=== PATIENT | female | born 2000 | race Two or more races ===

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

== ENCOUNTER 2022-08-18 09:21 | Outpatient (REF) | payer BC, MEDICAID, SELFPAY ==
--- NOTE | ~2022-08-18 | XR_ITS ---
EXAMINATION: XR DORSAL SPINE CLINICAL INFORMATION: Reason for Exam M54.6 - Pain in thoracic spine COMPARISON: None available at the time of this dictation. TECHNIQUE: Frontal lateral and swimmer's view. FINDINGS: There is no evidence of fracture or dislocation. The vertebral bodies maintain normal height and alignment. Intervertebral disc spaces are preserved. The paravertebral soft tissues are unremarkable. XR/XR thoracic spine 2V IMPRESSION: No significant osseous changes to explain patient's pain symptoms.
[2022-08-18 09:38] LABS: MANUAL DIFF FLAG NO
[2022-08-18 10:22] LABS: Basophils Absolute Auto 0.1 X10*3/uL (0.0-0.2); Eosinophils Absolute Auto 0.1 X10*3/uL (0.0-0.4); Eosinophils Percent Auto 1.4 % (0-4); Hematocrit 45.6 % (37.0-47.0); Hemoglobin 15.5 g/dl (12.0-16.0); Imm Gran Abs Auto 0.04 X10*3/uL (0.00-0.03); Imm Gran Pct Auto 0.8 % (0.0-0.4); Lymphocytes Absolute Auto 1.3 X10*3/uL (1.2-4.9); Lymphocytes Percent Auto 24.8 % (20-40); Mean Corpuscular Hemoglobin 30.2 pg (27.0-33.0); Mean Corpuscular Volume 88.9 fL (80.0-98.0); Mean Platelet Volume 9.9 fL (9.4-12.3); Monocytes Absolute Auto 0.5 X10*3/uL (0.1-1.2); Neutrophils Absolute Auto 3.2 x10*3/uL (2.0-8.3); Platelet Count 341 X10*3/uL (160-400); Red Blood Count 5.13 X10*6/uL (4.20-5.50); Red Cell Distribution Width 14.3 % (11.0-16.0); White Blood Count 5.1 X10*3/uL (4.8-10.8)
[2022-08-18 11:25] LABS: Alanine Aminotransferase 31 U/L (0-31); Alkaline Phosphatase 108 U/L (39-117); Anion Gap 16 (12-20); Aspartate Amino Transferase 17 U/L (5-31); Bilirubin Total 0.7 mg/dL (0.0-1.0); Blood Urea Nitrogen 15 mg/dL (9-16); Calcium 9.5 mg/dL (8.4-10.2); Carbon Dioxide 22 mmol/L (22-29); Chloride 104 mmol/L (96-108); Cholesterol 166 mg/dL; Estimated Glomerular Filt Rate > 60; Glucose Fasting 107 mg/dL (60-99); HDL Cholesterol 35 mg/dL; LDL Cholesterol Calculated 119 mg/dl; Potassium 4.5 mmol/L (3.3-5.1); Sodium 137 mmol/L (135-145); Total Protein 7.6 g/dL (6.5-8.0); Triglycerides 64 mg/dL
[2022-08-18 11:46] LABS: Free T4 (Free Thyroxine) 0.97 ng/dL (0.71-1.85); Thyroid Stimulating Hormone 2.38 uIU/mL (0.32-4.0)
== END 2022-08-18 09:22 | disposition home or self-care (01) ==
LOC: HO.LAB 09:21
PROVIDERS: PCP Internal Medicine; Visit Provider Internal Medicine
DX: E66.01 Morbid (severe) obesity due to excess calories (principal); Z68.41 Body mass index [BMI] 40.0-44.9, adult; M54.6 Pain in thoracic spine
CPT/HCPCS: 36415; 72070; 80053; 80061; 84439; 84443; 85025

== ENCOUNTER 2022-09-15 11:49 | Outpatient (REF) | payer BC, MEDICAID, SELFPAY ==
--- NOTE | 2022-09-15 08:45 | EMG_ITS ---
Bilateral median and ulnar motor and sensory studies were performed and bilateral radial sensory studies were performed. Needle examination was not performed as patient did not tolerate this test well. IMPRESSION: No evidence of median or ulnar neuropathy or generalized peripheral neuropathy. MD DIMPLE Tolentino/ERENDIRA / [phone]
== END 2022-09-15 11:50 | disposition home or self-care (01) ==
LOC: HO.NEURO 11:49
PROVIDERS: Visit Provider Internal Medicine
DX: R20.0 Anesthesia of skin (principal)
CPT/HCPCS: 95911

== ENCOUNTER 2022-12-19 15:00 | Outpatient (RCR) | payer BC, MEDICAID, SELFPAY ==
--- NOTE | 2022-12-09 16:23 | MHC.OT.EP ---
[address] [phone] Occupational Therapy Plan of Care Patient Name: Ofe Pop Date of Evaluation: 12/09/22 Diagnosis: Bilateral hand pain Pain Location: Parents report bilateral hands and wrists based on pt behaviors. Non specific. Occasional in the am and with cell phone games. Pt unable to answer questions consistently. Able to follow one step commands Pain Score: Pain Scale Used: Aggravating Factors: ?Sleep and gripping based on parent report Alleviating Factors: Assessment: Pt is a petite ,pleasant 21 yo female with a dx of Downs Syndrome , obesity and bilateral hand pain Pt parents reports she goes to a day program M- and at home she is mostly on her phone playing games. She requires assist to complete all ADL . 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 Evaluation is difficult due to pt low communication skills Pt will benefit from OT to address hand pain and left hand weakness Frequency and Duration: The patient will be seen 2 x wk x 4 wks Short Term Goals: Pt demonstrate improved hand sx in the AM with use of night wrist orthosis Left archery equipment hay sorter > 25 lb Tolerate moderate bilateral hand activities without complaint. Group Home Goals: Same as above Treatment Plan: Therapeutic Exercise Therapeutic Activity Home Exercise Program Splinting Patient Education Soft Tissue Mobilization Electronically Signed By: Ruth Wills OT CHT CLT Please Sign and return to therapist. Thank you once again for your referral.
--- NOTE | 2022-12-19 15:43 | MHC.OT.DC ---
[address] [phone] F: [phone] Occupational Therapy Discharge Note Patient Name: Ofe Pop Provider: Kimmie Perla Diagnosis: Bilateral hand pain Date of Surgery: Date of Evaluation: 12/09/22 Date of Discharge: 12/19/22 Treatments to Date: 2 Cancellations to Date: 0 No Shows to Date: 1 Discharge Status: Achieved Goals Improved Function Discharge Summary: Goals met for hand pain, strength and function . Pt is independent with hand strengthening with green therapy putty. Electronically Signed By: Ruth Wills OT CHT CLT Reviewed/agree with student documentation: Therapist: Please Sign and return to therapist, thank you for your referral.
== END 2022-12-19 15:43 | disposition home or self-care (01) ==
LOC: HO.OT 15:00
PROVIDERS: PCP Internal Medicine; Visit Provider Internal Medicine
DX: M79.641 Pain in right hand (principal); M79.642 Pain in left hand
CPT/HCPCS: 97110; 97167; 97530; 97760

== ENCOUNTER 2023-08-10 10:02 | Outpatient (AMB) | payer MEDICAID, SELFPAY ==
[2023-08-10 10:13] VITALS: BP 110/72; PULSE 83; TEMP 36.3; O2SAT 98
--- NOTE | 2023-08-10 10:13 | MHC.OFFWIV ---
Intake Vital Signs 08/10/23 10:13 Height 4 ft 8 in BP 110/72 Blood Pressure Location Rt brachial Position Sitting Pulse 83 Temp 97.4 F Temp Source Oral Pulse Oximetry (%) 98 Intake Visit Reasons: EP Cough, Fatigued, Sore throat (Masked) Intake Note: pt is here for c.o cough, fatigue, and sore throat Patient Tobacco Use Status: Never used Tobacco Allergies azithromycin Allergy (Severe, Verified 08/10/23 10:14) hives ranitidine [From ZANTAC] Allergy (Intermediate, Verified 08/10/23 10:14) HIVES SEASONAL ALLERGIES Allergy (Intermediate, Uncoded 11/21/22 08:55) HIVES Medication List - Last Reconciled 08/10/23 by Izzy Carrion NP acetaminophen 500 mg PO Q6H PRN benzonatate 100 mg PO TID cetirizine 10 mg PO DAILY 90 days ibuprofen 600 mg PO Q8H PRN 30 days Do you need a note to return to daycare/school/sports/work: Yes HPI HPI Comments History of Present Illness Details 22 y/o female presents to walk in clinic with c/o headache, cough, fatigue and sorethroat. Symptoms started 1 week ago. Reports that her entire family is sick at home. No recent contact with known +ve COVI or FLU. She has been taking OTC cough medicine with some relief. [facility] Medical History Down syndrome Surgical History History of open heart surgery Family History Mother Asthma Family/Other Substance use disorder Father Hypercholesteremia Diabetes CHF (congestive heart failure) Paternal Aunt CHF (congestive heart failure) Diabetes Fibromyalgia Social History Housing: Apartment Alcohol intake: never Patient Tobacco Use Status: Never used Tobacco e-Cigarette/Vaping Use: Never Used Second Hand Smoke Exposure: No service: No Current occupational status: unemployed and disabled Cognitive needs: No Hearing needs: No Vision needs: Yes Review of Systems Const All systems reviewed & are unremarkable except as noted in HPI and below Physical Exam Vital Signs: Last Vital Signs Temp 97.4 F 08/10/23 10:13 Pulse 83 08/10/23 10:13 BP 110/72 08/10/23 10:13 Pulse Ox 98 08/10/23 10:13 Const General: no acute distress HEENT Head: Yes normocephalic Ears: TM's normal bilaterally General nose exam: Normal nares present and No nasal discharge present Face and sinus: Yes sinuses nontender Mouth: moist mucous membranes Throat: Yes posterior oropharynx normal Resp Auscultation: clear to auscultation bilaterally Cardio Rate: regular rate Rhythm: regular rhythm Results AMB Rapid Strep AMB Rapid Strep Negative Last Edit by Stew Edgar CMA on 08/10/23 10:26 Results Reviewed Results Reviewed: Laboratory Last Values Strep Scn Rapid Clinic Negative 08/10/23 10:25 Assessment & Plan Assessment & Plan (1) URI, acute: Code(s): J06.9 - Acute upper respiratory infection, unspecified Plan: Rest Acetaminophen for pain/fatigue Hydrate with plenty of fluids OTC cough medicine (2) Cough in adult: Code(s): R05.9 - Cough, unspecified Plan: Rest Acetaminophen for pain/fatigue Hydrate with plenty of fluids OTC cough medicine (3) Acute pharyngitis: Code(s): J02.9 - Acute pharyngitis, unspecified Qualifiers: Pharyngitis/tonsillitis etiology: unspecified etiology Qualified Code(s): J02.9 - Acute pharyngitis, unspecified Plan: Rest Acetaminophen for pain/fatigue Hydrate with plenty of fluids OTC cough medicine Orders: Orders AMB Rapid Strep Screen Today Z13.9 - Encounter for screening, unspecified Medications: New acetaminophen 500 mg PO Q6H PRN 20 caps 0RF fever benzonatate 100 mg PO TID 30 caps 0RF Coding Level of Care Code Est Pt Level 2 (30697) Diagnoses URI, acute J06.9 Cough in adult R05.9 Acute pharyngitis, unspecified etiology J02.9 Pharyngitis/tonsillitis etiology: unspecified etiology Time Spent (min) 10
== END 2023-08-10 10:55 | disposition home or self-care (01) ==
PROVIDERS: PCP Internal Medicine; Visit Provider Nurse Practitioner Family
DX: J06.9 Acute upper respiratory infection, unspecified (principal); R05.9 Cough, unspecified; J02.9 Acute pharyngitis, unspecified
CPT/HCPCS: 87880; 99213

== ENCOUNTER 2023-11-23 08:05 | Outpatient (AMB) | payer OTHER, SELFPAY ==
--- NOTE | 2023-11-23 08:20 | MHC.PC.OV ---
Vital Signs 11/23/23 08:21 Height 4 ft 8 in Weight 189 lb BMI 42.4 BP 110/70 Blood Pressure Location Lt brachial Position Sitting Intake Visit Reasons: pe Intake Note: Patient here for a physical exam Marketing Content Manager Required: No Accompanied by: Mother Allergies azithromycin Allergy (Severe, Verified 11/23/23 08:35) hives ranitidine [From ZANTAC] Allergy (Intermediate, Verified 11/23/23 08:35) HIVES SEASONAL ALLERGIES Allergy (Intermediate, Uncoded 11/23/23 08:35) HIVES Medication List - Last Reconciled 11/23/23 by Kimmie Perla MD acetaminophen 500 mg PO Q6H PRN cetirizine 10 mg PO DAILY 90 days ibuprofen 600 mg PO Q8H PRN 30 days Tobacco use date assessed: 11/23/23 Dental Screening Dental Screen Date: 11/23/23 Did you have a dental visit in the last 12 months?: Yes Did you have a dental problem in the last 6 months where you did not have access to dental care?: No Was dental information given to patient?: Patient has dentist HPI HPI Comments History of Present Illness Details This is a 22-year-old female with Down syndrome and morbid obesity that comes accompanied by mother which is the clerical associate for her physical exam. Mother which is the historian complains of urinary incontinence for no reason. I will refer her to Urology. She is morbidly obese with a BMI of 42.4 and will benefit from Wegovy. Denies any chest pain or shortness of breath. Has Nexplanon and still has menses. Will be referred to OBGYN for another contraception management. 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 [facility] Medical History (Updated 11/23/23 @ 08:47 by Kimmie Perla MD) Down syndrome Surgical History (Updated 11/23/23 @ 08:47 by Kimmie Perla MD) History of open heart surgery Family History Mother Asthma Family/Other Substance use disorder Father Hypercholesteremia Diabetes CHF (congestive heart failure) Paternal Aunt CHF (congestive heart failure) Diabetes Fibromyalgia Social History Housing: Apartment Alcohol intake: never Patient Tobacco Use Status: Never used Tobacco e-Cigarette/Vaping Use: Never Used Second Hand Smoke Exposure: No service: No Current occupational status: student and disabled Cognitive needs: No Hearing needs: No Vision needs: Yes Questionnaire PHQ-9 Over the last 2 weeks, how often have you been bothered by any of the following problems? 1. Little interest or pleasure in doing things: not at all 2. Feeling down, depressed, or hopeless: not at all 3. Trouble falling or staying asleep, or sleeping too much: nearly every day 4. Feeling tired or having little energy: several days 5. Poor appetite or overeating: not at all 6. Feeling bad about yourself - or that you are a failure or have let yourself or your family down: not at all 7. Trouble concentrating on things, such as reading the newspaper or watching television: not at all 8. Moving or speaking so slowly that other people could have noticed. Or the opposite - being so fidgety or restless that you have been moving around a lot more than usual: not at all 9. Thoughts that you would be better off or of hurting yourself in some way: not at all Total score: 4 Depression Screening Interpretation: Negative Depression Screening Done: Yes 29257 - PHQ-9 Billing: Yes Source: Developed by Drs. Dave Guillaume, Daily Pena, Conrad Damon and colleagues, with an educational lashawn from [employer]. Thrive Questionnaire Date Thrive assessed: 11/23/23 I am a: Patient What is your living situation today?: I have a steady place to live Within the past 12 months, did the food you bought not last and you didn't have the money to get more?: Never true Within the past 12 months, did you worry whether your food would run out before you got money to buy more?: Never true Do you have trouble paying for medicines?: No Do you have trouble getting transportation to medical appointments?: No Do you have trouble paying your heating and electricity bill?: No Do you have trouble taking care of your child, family member or friend?: No Do you have trouble with day-to-day activities such as bathing, preparing meals, shopping, managing finances, etc.?: No Are you currently unemployed and looking for a job?: No Are you interested in more education?: No Please select the resources that you would like help with: None Currently or been in a relationship where the following occur: no concerns reported THRIVE Score: 0 AUDIT C Alcohol Use Questionnaire (AUDIT-C) 1. How often do you have a drink containing alcohol?: Never Total Score: 0 Score Reviewed/Action Taken: No FCO-7 AMB Questionnaire FCO-7 Date FCO - 7 assessed: 11/23/23 Feeling nervous, anxious, or on edge: 0 = Not at all Not being able to stop or control worryin = Not at all Worrying too much about different things: 0 = Not at all Trouble relaxin = Not at all Being so restless that it is hard to sit still: 0 = Not at all Becoming easily annoyed or irritable: 0 = Not at all Feeling afraid as if something awful might happen: 0 = Not at all Total FCO-7 score (0-4 normal; 5-9 mild; 10-14 moderate; 15-21 severe): 0 Source: Developed by Drs. Dave Guillaume, Daily Pena, Conrad Damon and colleagues, with an educational lashawn from [employer]. FCO-7 Assessment Billing FCO-7 Assessment Tool: FCO-7 Assessment 16260 Review of Systems Const All systems reviewed & are unremarkable except as noted in HPI and below Eyes Reports no additional complaints, Denies change in vision and Denies other visual disturbances ENT Denies change in voice, Denies lip swelling, Denies nasal discharge and Denies sinus pain Card Denies chest pain at rest, Denies chest pain with activity, Denies edema, Denies irregular heart rhythm, Denies claudication, Denies dyspnea, Denies dyspnea on exertion, Denies orthopnea, Denies paroxysmal nocturnal dyspnea and Denies slow heart rate Resp Denies cough, Denies dyspnea and Denies dyspnea on exertion GI Denies abdominal pain, Denies change in bowel habits, Denies excessive flatus, Denies nausea and Denies vomiting Reports urinary incontinence, Denies urinary hesitancy and Denies urinary urgency Musc Denies abnormal gait, Denies atrophy, Denies deformity and Denies limited range of motion Skin/Breast Denies bleeding lesions, Denies changing lesions and Denies rash Neuro Denies abnormal gait, Denies behavioral changes, Denies confusion and Denies lack of coordination Psych Denies behavioral changes and Denies confusion Endo Denies cold intolerance Karlo/Lymph Denies easy bleeding and Denies easy bruising Aller/Immun Denies urticaria and Denies lip swelling Physical exam (Primary Care) Vital Signs: Last Vital Signs BP 110/70 11/23/23 08:21 BMI result Body Mass Index 42.4 Tobacco/Smoking Status: Tobacco use Status Tobacco use date assessed 11/23/23 11/23/23 08:26 Patient Tobacco Use Status Never used Tobacco 11/23/23 08:21 e-Cigarette/Vaping Use Never Used 11/23/23 08:21 PHQ-9: PHQ-9 Score PHQ-9: Total score 4 11/23/23 08:26 Depression Screening Interpretation: Negative Thrive Assessment: Date of Thrive Assessment Date Thrive assessed 11/23/23 11/23/23 08:26 Currently or been in a relationship where the following occur: no concerns reported Const General: No confusion Orientation/consciousness: No confusion HENMT Head: Yes normal to inspection, Yes normocephalic and Yes atraumatic Ears: external ears normal General nose exam: Normal external nose present and No nasal discharge present Face and sinus: Yes sinuses nontender Mouth: lip normal Eyes General: appearance normal, both eyes and all related structures Eyelids: Yes eyelids normal Conjunctivae: conjunctivae normal Neck Neck: Yes normal visual inspection and Yes supple Resp Effort & Inspection: normal respiratory effort Auscultation: clear to auscultation bilaterally Cardio Jugular venous distension: no JVD Rate: regular rate Rhythm: regular rhythm Heart sounds: S1 normal heart sound present and S2 normal heart sound present GI Inspection: Yes normal to inspection Palpation (GI): Soft to palpation and nontender Auscultation: normal bowel sounds Skin General skin exam: no rashes or lesions noted Neuro General: no focal motor deficits and No confusion Extrem General: Yes full ROM Psych Appearance: grossly normal Assessment and Plan Assessment & Plan (1) Physical exam: Code(s): Z00.00 - Encounter for general adult medical examination without abnormal findings Plan: Repeat in a year. (2) Morbid obesity with BMI of 40.0-44.9, adult: Code(s): E66.01 - Morbid (severe) obesity due to excess calories; Z68.41 - Body mass index [BMI] 40.0-44.9, adult Plan: Start Wegovy. Orders: Referrals PIPE LINE MAINTENANCE SUPERVISOR Referral Z30.9 - Encounter for contraceptive management, unspecified Urology Referral R32 - Unspecified urinary incontinence Medications: New semaglutide (weight loss) (Wegovy) administer weeks 1 through 4 of therapy 0.25 mg (0.5 mL) subcut QWEEK 30 days 2.5 mL 0RF E66.01 - Morbid (severe) obesity due to excess calories, Z68.41 - Body mass index [BMI] 40.0-44.9, adult, Z98.890 - Other specified postprocedural states trazodone 50 mg PO BEDTIME 30 days PRN 30 tabs 0RF sleep Coding Level of Care Code Est Pt Prev Care 18-39y([id number]) Diagnoses Physical exam Z00.00 Morbid obesity with BMI of 40.0-44.9, adult E66.01; Z68.41 Additional Codes FCO-7 Assessment Billing - FCO-7 Assessment Tool: FCO-7 Assessment 79793 ([id number]) Time Spent (min) 31
[2023-11-23 08:21] VITALS: BP 110/70; BMI 42.4
== END 2023-11-23 08:46 | disposition home or self-care (01) ==
PROVIDERS: Visit Provider Internal Medicine
DX: Z00.00 Encounter for general adult medical examination without abnormal findings (principal); E66.01 Morbid (severe) obesity due to excess calories; Z68.41 Body mass index [BMI] 40.0-44.9, adult
CPT/HCPCS: 99395

== ENCOUNTER 2024-03-07 13:29 | Outpatient (AMB) | payer OTHER, SELFPAY ==
--- NOTE | 2024-03-07 13:31 | MHC.OFFVIS ---
Vital Signs 03/07/24 13:34 Height 4 ft 8 in Weight 191 lb BMI 42.8 BP 118/70 Intake Visit Reasons: control consult Salon Supervisor Required: No Information Interpreted: clinical only Waste Specialist: Waste Specialist Present Allergies azithromycin Allergy (Severe, Verified 03/07/24 13:35) hives ranitidine [From ZANTAC] Allergy (Intermediate, Verified 03/07/24 13:35) HIVES SEASONAL ALLERGIES Allergy (Intermediate, Uncoded 03/07/24 13:35) HIVES Medication List - Last Reconciled 03/07/24 by Rekha Loco CNM acetaminophen 500 mg PO Q6H PRN cetirizine 10 mg PO DAILY 90 days ibuprofen 600 mg PO Q8H PRN 30 days semaglutide (weight loss) (Wegovy) 0.25 mg (0.5 mL) subcut QWEEK 30 days trazodone 50 mg PO BEDTIME PRN 30 days Is last menstrual period known: No (Nexplanon) Do you need a note to return to daycare/school/sports/work: No HPI HPI control consult: Details: Ofe Trevizo is here with her mother Comfort and her 19-year-old sister. Most of the history was shared by mother and with the patient's permission. She does not like periods and her mother shared that when she was going to school and getting her periods there was not anybody to really help her with her periods and so her machine feller place the Nexplanon to help her periods go way and they have mostly gone away with the exception of a little spotting she thinks it was placed about 4 or 5 years ago. It has helped her a lot the only problem is she has gained weight. They had questions about alternatives. I did explain the other alternative that might be available including pills and their analogs which require daily use and would doing have some what regular menses though staff nuclear weapons officer. Depo-Provera which has the same side effect is weight gain every 3 months and also the other alternatives of an IUD with progestin in it to help limit menses however for her situation of having never had a pelvic exam and not being sexually active and having a more limited understanding of the value of pelvic exams and vaginal invasive procedures this could very well prove to be very traumatic. The patient attends a program during the day for daycare the mother feels fairly assured that she is safe and that she has already talked to her daughter about safety if any boy tried to touch her and the patient voiced understanding of this but she had that sometimes the boys are loud in the program. She does not want to get her period back herself she remembers the Nexplanon hurting going in and I did let her know that I would need to put a needle in to give numbing medicine and then take out the Nexplanon and then put a new 1 in if she wants she indicated that she does want it because she does not want to get her period anymore. Since she is getting more spotting than she was before her mother and thinks it is time to replace it now. It was inserted for 5 years ago and would of been good for 3 years. The patient signed the Nexplanon form and her mother signed as well. We will see her for replacement of the Nexplanon when it arrives. [facility] Medical History Down syndrome Surgical History History of open heart surgery Family History Mother Asthma Family/Other Substance use disorder Father Hypercholesteremia Diabetes CHF (congestive heart failure) Paternal Aunt CHF (congestive heart failure) Diabetes Fibromyalgia Social History Housing: Apartment Alcohol intake: never Patient Tobacco Use Status: Never used Tobacco e-Cigarette/Vaping Use: Never Used Second Hand Smoke Exposure: No service: No Current occupational status: student and disabled Cognitive needs: No Hearing needs: No Vision needs: Yes Female Reproductive History Menstrual Age of Menarche: 15 Duration of menses: 3-5 days control method: implanted Total pregnancies: 0 History of abnormal pap smear: No (no previous pap) Physical Exam Vital Signs: Last Vital Signs BP 118/70 03/07/24 13:34 BMI result Body Mass Index 42.8 Assessment & Plan Assessment & Plan (1) Down syndrome: Code(s): Q90.9 - Down syndrome, unspecified Category: Medical (2) Morbid obesity with BMI of 40.0-44.9, adult: Comment: Discussed in context dietary likes and dislikes and how healthy foods can make us feel better, as well as discussed encouraging dancing and Clyde and other active movement. Discussed in context of the Nexplanon weight gain side effects which she is using to help with menstrual management, and this will be replaced in near future. Code(s): E66.01 - Morbid (severe) obesity due to excess calories; Z68.41 - Body mass index [BMI] 40.0-44.9, adult Category: Medical (3) Contraceptive management: Comment: Has Nexplanon inserted by machine feller for 5 years ago for menstrual management which has been successful only negative side effect is the weight gain after full discussion decision made by patient and mother to proceed with replacement. Code(s): Z30.9 - Encounter for contraceptive management, unspecified Category: Medical Plan Ofe Mcghee is here with her mother Kimmie and her 19-year-old sister. (her mother believes that I was the courtroom reporter were attended both of her daughters births) Most of the history was shared by mother and with the patient's permission. She does not like periods and her mother shared that when she was going to school and getting her periods there was not anybody to really help her with her periods and so her machine feller place the Nexplanon to help her periods go way and they have mostly gone away with the exception of a little spotting she thinks it was placed about 4 or 5 years ago. It has helped her a lot the only problem is she has gained weight. They had questions about alternatives. I did explain the other alternative that might be available including pills and their analogs which require daily use and would doing have some what regular menses though staff nuclear weapons officer. Depo-Provera which has the same side effect is weight gain every 3 months and also the other alternatives of an IUD with progestin in it to help limit menses however for her situation of having never had a pelvic exam and not being sexually active and having a more limited understanding of the value of pelvic exams and vaginal invasive procedures this could very well prove to be very traumatic. The patient attends a program during the day for daycare the mother feels fairly assured that she is safe and that she has already talked to her daughter about safety if any boy tried to touch her and the patient voiced understanding of this but she had that sometimes the boys are loud in the program. She does not want to get her period back herself she remembers the Nexplanon hurting going in and I did let her know that I would need to put a needle in to give numbing medicine and then take out the Nexplanon and then put a new 1 in if she wants she indicated that she does want it because she does not want to get her period anymore. Since she is getting more spotting than she was before her mother and thinks it is time to replace it now. It was inserted for 5 years ago and would of been good for 3 years. The patient signed the Nexplanon form and her mother signed as well. We will see her for replacement of the Nexplanon when it arrives. The patient clinched a little bit at the discussion of a needle that would have to go in for pain medicine.. We also discussed the issues of weight gain and diet. They have been working with a foundation drill operator helper and also try very hard at home to encourage her to eat more protein and vegetables and salads because she is gaining weight unfortunately she likes mesh potatoes and not much else and she likes peanut butter and jelly sandwich is and not much else so we did spend some time encouraging healthier choices and coming up with reasons why they might be good for her and more enjoyable in a long run. Additionally we talked about exercise and Clyde and being active she does like to dance. Coding Level of Care Code New Pt Level 3 (99500) Diagnoses Down syndrome Q90.9 Morbid obesity with BMI of 40.0-44.9, adult E66.01; Z68.41 Contraceptive management Z30.9
[2024-03-07 13:34] VITALS: BP 118/70; BMI 42.8
== END 2024-03-07 14:29 | disposition home or self-care (01) ==
LOC: HO.HWSM 13:30
PROVIDERS: PCP Internal Medicine; Visit Provider Advanced Practice Midwife
DX: Q90.9 Down syndrome, unspecified (principal); E66.01 Morbid (severe) obesity due to excess calories; Z68.41 Body mass index [BMI] 40.0-44.9, adult; Z30.9 Encounter for contraceptive management, unspecified
CPT/HCPCS: 99203

== ENCOUNTER → 2024-03-07 13:29 | Outpatient (BNVA) | payer OTHER, SELFPAY | PROVIDERS: PCP Internal Medicine; Visit Provider Advanced Practice Midwife | DX: Z30.9 Encounter for contraceptive management, unspecified (principal); E66.01 Morbid (severe) obesity due to excess calories; Z68.41 Body mass index [BMI] 40.0-44.9, adult; Q90.9 Down syndrome, unspecified | CPT/HCPCS: 99202 ==

== ENCOUNTER 2024-03-27 10:50 | Outpatient (AMB) | payer OTHER, SELFPAY ==
--- NOTE | 2024-03-27 11:15 | MHC.OFFVIS ---
Intake Visit Reasons: urinary incontinence Intake Note: Patient is present for URINARY INCONTINECE Urology Medication:NONE Antibiotic Allergy:AZITHROMYCIN Blood Thinner:NONE TODAY'S 0ML'S Technologist Development Required: Yes Technologist Development Services: Technologist Development Present Technologist Development Name: Renato [id number] Allergies azithromycin Allergy (Severe, Verified 03/27/24 11:17) hives ranitidine [From ZANTAC] Allergy (Intermediate, Verified 03/27/24 11:17) HIVES SEASONAL ALLERGIES Allergy (Intermediate, Uncoded 03/27/24 11:17) HIVES Medication List - Last Reconciled 03/27/24 by Lois Salter MD acetaminophen 500 mg PO Q6H PRN cetirizine 10 mg PO DAILY 90 days ibuprofen 600 mg PO Q8H PRN 30 days semaglutide (weight loss) (Wegovy) 0.25 mg (0.5 mL) subcut QWEEK 30 days trazodone 50 mg PO BEDTIME PRN 30 days HPI Comments Details: Luann is a 23 year old female with Down's syndrome, she presents with her SHORT ORDER COOK who gives the history. The SHORT ORDER COOK states that the patient what is her panties with urine. She denies UTIs. The patient is in a day program from 7 to 230 p.m.. The SHORT ORDER COOK picks up Amharic chest go at 02:30 in his with her until 18:00. The patient lives with her parents and siblings. I have discussed that urine leakage may be behavioral related. Urinalysis negative for blood or leukocytes. Bladder scan PVR today is 0 mL. Will check a renal ultrasound. [facility] Medical History Down syndrome Surgical History History of open heart surgery Family History Mother Asthma Family/Other Substance use disorder Father Hypercholesteremia Diabetes CHF (congestive heart failure) Paternal Aunt CHF (congestive heart failure) Diabetes Fibromyalgia Social History Housing: Apartment Alcohol intake: never Patient Tobacco Use Status: Never used Tobacco e-Cigarette/Vaping Use: Never Used Second Hand Smoke Exposure: No service: No Current occupational status: student and disabled Cognitive needs: No Hearing needs: No Vision needs: Yes Female Reproductive History Menstrual Age of Menarche: 15 Review of Systems Const All systems reviewed & are unremarkable except as noted in HPI and below Reports no additional complaints Eyes Reports no additional complaints ENT Reports no additional complaints Card Reports no additional complaints Resp Reports no additional complaints GI Reports no additional complaints Reports as per HPI Musc Reports no additional complaints Skin/Breast Reports system reviewed and no additional complaints, except as documented Neuro Reports no additional complaints Psych Reports no additional complaints Endo Reports no additional complaints Karlo/Lymph Reports no additional complaints Aller/Immun Reports no additional complaints Physical Exam Const General: cooperative, healthy appearing and no acute distress Nutritional Appearance: overweight Orientation/consciousness: patient oriented x3 HEENT Head: Yes normal to inspection, Yes normocephalic and Yes atraumatic Eyes Conjunctivae: conjunctivae normal Neck Neck: Yes normal visual inspection and Yes trachea midline Chest Chest palpation & inspection: normal inspection of the chest Resp Effort & Inspection: normal respiratory effort Cardio Rate: regular rate GI Inspection: Yes normal to inspection Palpation (GI): Soft to palpation Neuro General: patient oriented x3 Psych Appearance: grossly normal Office Procedures Post Void Residual Post Residual Void Post Void Residual (PVR): 0 [id number] Void Residual by ultrasound Results AMB Urinalysis, Automated UA Leukoctes 0 Ninoska/uL Last Edit by RAMSEY Sherman on 03/27/24 11:29 UA Nitrite Negative Last Edit by RAMSEY Sherman on 03/27/24 11:29 UA Urobilinogen 0.2 mg/dL Last Edit by RAMSEY Sherman on 03/27/24 11:29 UA Protein 30 mg/dL Last Edit by RAMSEY Sherman on 03/27/24 11:29 UA pH 5.5 Last Edit by RAMSEY Sherman on 03/27/24 11:29 UA Blood 0 Olvin/uL Last Edit by RAMSEY Sherman on 03/27/24 11:29 UA Specific [place] 1.020 Last Edit by RAMSEY Sherman on 03/27/24 11:29 UA Ketone Negative Last Edit by RAMSEY Sherman on 03/27/24 11:29 UA Bilirubin 0 mg/dL Last Edit by RAMSEY Sherman on 03/27/24 11:29 UA Glucose 0 mg/dL Last Edit by RAMSEY Sherman on 03/27/24 11:29 Results Reviewed Results Reviewed: Laboratory Last Values Urine pH (Auto) 5.5 03/27/24 11:28 Specific [place] (Auto) 1.020 03/27/24 11:28 Urine Protein (Auto) 30 mg/dL 03/27/24 11:28 Glucose (UA)(Auto) 0 mg/dL 03/27/24 11:28 Urine Ketones (Auto) Negative 03/27/24 11:28 Urine Blood (Auto) 0 Olvin/uL 03/27/24 11:28 Urine Nitrite (Auto) Negative 03/27/24 11:28 Urine Bilirubin (Auto) 0 mg/dL 03/27/24 11:28 Urine Urobilinogen (Auto) 0.2 mg/dL 03/27/24 11:28 Leukocyte Esterase (Auto) 0 Ninoska/uL 03/27/24 11:28 Assessment & Plan Assessment & Plan (1) Urinary incontinence: Code(s): R32 - Unspecified urinary incontinence Category: Medical (2) Down syndrome: Code(s): Q90.9 - Down syndrome, unspecified Category: Medical Plan Urinary incontinence. Down syndrome; discussed that urine leakage may be behavioral related. Urinalysis negative for blood or leukocytes. Bladder scan PVR today is 0 mL. Will check a renal ultrasound. Orders: Orders AMB Urinalysis Automated Today Z13.9 - Encounter for screening, unspecified US renal BI Today R32 - Unspecified urinary incontinence Patient Instructions: It is a privilege to be allowed the opportunity to participate in the urologic care of your patient. If you have any questions or concerns regarding treatment for the above conditions please do not hesitate to contact me. The office telephone contact is [phone]. This note is constructed in part using voice recognition software. While every effort has been made to ensure accuracy aegis console operator track errors may have been included. Yours sincerely, Lois Salter MD Coding Level of Care Code New Pt Level 4 (33190) Diagnoses Urinary incontinence R32 Down syndrome Q90.9 CPT Codes Post Residual Void - PVR CPT Code: 61669-Sczx Void Residual by ultrasound ([id number])
== END 2024-03-27 12:02 | disposition home or self-care (01) ==
PROVIDERS: PCP Internal Medicine; Visit Provider Urology
DX: R32 Unspecified urinary incontinence (principal); Q90.9 Down syndrome, unspecified; Z13.9 Encounter for screening, unspecified
CPT/HCPCS: 99204

== ENCOUNTER → 2024-03-27 10:50 | Outpatient (BNVA) | payer OTHER, SELFPAY | PROVIDERS: PCP Internal Medicine; Visit Provider Urology | DX: R32 Unspecified urinary incontinence (principal); Q90.9 Down syndrome, unspecified | CPT/HCPCS: 51798; 81003; 99202 ==

== ENCOUNTER 2024-05-20 08:26 | Outpatient (REF) | payer OTHER, SELFPAY | END 2024-05-20 08:27 | disposition home or self-care (01) | LOC: HO.HMGCX 08:26 | PROVIDERS: PCP Internal Medicine; Visit Provider Urology | DX: R32 Unspecified urinary incontinence (principal) | CPT/HCPCS: 76775 ==

== ENCOUNTER 2024-05-27 14:13 | Outpatient (AMB) | payer OTHER, SELFPAY ==
--- NOTE | 2024-05-27 14:16 | MHC.OFFVIS ---
Intake Visit Reasons: 2m/US(US Pending) Intake Note: Patient is present for 2M/US Urology Medication:NONE Antibiotic Allergy:AZITHROMYCIN, Blood Thinner:NONE Core Drilling Supervisor Required: Yes Core Drilling Supervisor Name: [id number]--Avsnk Information Interpreted: non-clinical & clinical Allergies azithromycin Allergy (Severe, Verified 05/27/24 14:17) hives ranitidine [From ZANTAC] Allergy (Intermediate, Verified 05/27/24 14:17) HIVES SEASONAL ALLERGIES Allergy (Intermediate, Uncoded 05/27/24 14:17) HIVES Medication List - Last Reconciled 05/27/24 by Lois Salter MD acetaminophen 500 mg PO Q6H PRN cetirizine 10 mg PO DAILY 90 days ibuprofen 600 mg PO Q8H PRN 30 days semaglutide (weight loss) (Wegovy) 0.25 mg (0.5 mL) subcut QWEEK 30 days trazodone 50 mg PO BEDTIME PRN 30 days HPI Comments Details: 05/27/24--the patient is here for follow-up. Denies irritative voiding symptoms. I have reviewed renal ultrasound 05/20/24--kidneys no parenchymal lesions for renal calculi noted, mild left. I have discussed behavioral modification prompted toileting every 3 hours. A letter was given to the EVENT SET UP SPECIALIST so that she can give it to the day program that Micaela attends. Discussed avoiding dietary bladder irritants, the patient does not drink coffee, discussed increase water intake cut back sodas. FU 3 months. Review of chart: Luann is a 23 year old female with Down's syndrome, she presents with her EVENT SET UP SPECIALIST who gives the history. The EVENT SET UP SPECIALIST states that the patient what is her panties with urine. She denies UTIs. The patient is in a day program from 7 to 230 p.m.. The EVENT SET UP SPECIALIST picks up Hungarian chest go at 02:30 in his with her until 18:00. The patient lives with her parents and siblings. I have discussed that urine leakage may be behavioral related. Urinalysis negative for blood or leukocytes. Bladder scan PVR today is 0 mL. Will check a renal ultrasound. [facility] Medical History Down syndrome Surgical History History of open heart surgery Family History Mother Asthma Family/Other Substance use disorder Father Hypercholesteremia Diabetes CHF (congestive heart failure) Paternal Aunt CHF (congestive heart failure) Diabetes Fibromyalgia Social History Housing: Apartment Alcohol intake: never Patient Tobacco Use Status: Never used Tobacco e-Cigarette/Vaping Use: Never Used Second Hand Smoke Exposure: No service: No Current occupational status: student and disabled Cognitive needs: No Hearing needs: No Vision needs: Yes Female Reproductive History Menstrual Age of Menarche: 15 Review of Systems Const All systems reviewed & are unremarkable except as noted in HPI and below Reports no additional complaints Eyes Reports no additional complaints ENT Reports no additional complaints Card Reports no additional complaints Resp Reports no additional complaints GI Reports no additional complaints Reports as per HPI Musc Reports no additional complaints Skin/Breast Reports system reviewed and no additional complaints, except as documented Neuro Reports no additional complaints Psych Reports no additional complaints Endo Reports no additional complaints Karlo/Lymph Reports no additional complaints Aller/Immun Reports no additional complaints Results AMB Urinalysis, Automated UA Leukoctes 0 Ninoska/uL Last Edit by RAMSEY Sherman on 05/27/24 14:34 UA Nitrite Negative Last Edit by RAMSEY Sherman on 05/27/24 14:34 UA Urobilinogen 0.2 mg/dL Last Edit by RAMSEY Sherman on 05/27/24 14:34 UA Protein 0 mg/dL Last Edit by RAMSEY Sherman on 05/27/24 14:34 UA pH 6.0 Last Edit by RAMSEY Sherman on 05/27/24 14:34 UA Blood 0 Olvin/uL Last Edit by RAMSEY Sherman on 05/27/24 14:34 UA Specific [place] 1.025 Last Edit by RAMSEY Sherman on 05/27/24 14:34 UA Ketone Negative Last Edit by RAMSEY Sherman on 05/27/24 14:34 UA Bilirubin 0 mg/dL Last Edit by RAMSEY Sherman on 05/27/24 14:34 UA Glucose 0 mg/dL Last Edit by RAMSEY Sherman on 05/27/24 14:34 Results Reviewed Results Reviewed: Laboratory Last Values Urine pH (Auto) 6.0 05/27/24 14:33 Specific [place] (Auto) 1.025 05/27/24 14:33 Urine Protein (Auto) 0 mg/dL 05/27/24 14:33 Glucose (UA)(Auto) 0 mg/dL 05/27/24 14:33 Urine Ketones (Auto) Negative 05/27/24 14:33 Urine Blood (Auto) 0 Olvin/uL 05/27/24 14:33 Urine Nitrite (Auto) Negative 05/27/24 14:33 Urine Bilirubin (Auto) 0 mg/dL 05/27/24 14:33 Urine Urobilinogen (Auto) 0.2 mg/dL 05/27/24 14:33 Leukocyte Esterase (Auto) 0 Ninoska/uL 05/27/24 14:33 Assessment & Plan Assessment & Plan (1) Down syndrome: Code(s): Q90.9 - Down syndrome, unspecified Category: Medical (2) Functional urinary incontinence: Code(s): R39.81 - Functional urinary incontinence Category: Medical Plan Prompted toileting. Follow-up 3 months. Orders: Orders AMB Urinalysis Automated Today Z13.9 - Encounter for screening, unspecified Patient Instructions: The patient had an opportunity to ask questions regarding treatment plan. The patient expressed understanding and agreement with the above treatment plan. The patient is aware they should contact our office by phone for worsening of their current condition or the appearance of new symptoms. Compliance is encouraged with any medications and followup testing that is ordered. It is a privilege to be allowed the opportunity to participate in the urologic care of your patient. If you have any questions or concerns regarding treatment for the above conditions please do not hesitate to contact me. The office telephone contact is [phone]. This note is constructed in part using voice recognition software. While every effort has been made to ensure accuracy esl instructor errors may have been included. Yours sincerely, Lois Salter MD Coding Level of Care Code Est Pt Level 3 (16840) Diagnoses Down syndrome Q90.9 Functional urinary incontinence R39.81
== END 2024-05-27 14:58 | disposition home or self-care (01) ==
LOC: HO.HUSH 14:14
PROVIDERS: PCP Internal Medicine; Visit Provider Urology
DX: Q90.9 Down syndrome, unspecified (principal); R39.81 Functional urinary incontinence; Z13.9 Encounter for screening, unspecified
CPT/HCPCS: 99213

== ENCOUNTER → 2024-05-27 14:13 | Outpatient (BNVA) | payer OTHER, SELFPAY | PROVIDERS: PCP Internal Medicine; Visit Provider Urology | DX: R39.81 Functional urinary incontinence (principal); Q90.9 Down syndrome, unspecified | CPT/HCPCS: 81003; 99212 ==

== ENCOUNTER 2024-05-30 13:18 | Outpatient (AMB) | payer OTHER, SELFPAY ==
[2024-05-30 13:26] VITALS: BP 116/68; BMI 42.8
--- NOTE | 2024-05-30 13:26 | A.OFFVIS_ITS ---
Vital Signs 05/30/24 13:26 Height 4 ft 8 in Weight 191 lb BMI 42.8 BP 116/68 Intake Visit Reasons: Removal/ Insertion Nexplanon Technician Test Systems Services: Technician Test Systems Present Information Interpreted: clinical only Seed Production Field Supervisor: Seed Production Field Supervisor Present Allergies azithromycin Allergy (Severe, Verified 05/30/24 13:28) hives ranitidine [From ZANTAC] Allergy (Intermediate, Verified 05/30/24 13:28) HIVES SEASONAL ALLERGIES Allergy (Intermediate, Uncoded 05/30/24 13:28) HIVES Medication List - Last Reconciled 05/30/24 by Rekha Loco CNM acetaminophen 500 mg PO Q6H PRN cetirizine 10 mg PO DAILY 90 days etonogestrel (Nexplanon) subdermal ibuprofen 600 mg PO Q8H PRN 30 days semaglutide (weight loss) (Wegovy) 0.25 mg (0.5 mL) subcut QWEEK 30 days trazodone 50 mg PO BEDTIME PRN 30 days Is last menstrual period known: No (Nexplanon) HPI HPI Removal/ Insertion Nexplanon: Details: Is here with her mother and a for her Nexplanon removal and replacement. She has had it in for 5 years it has to help her her menses she is not sexually active as far as she or anyone in her care taking world knows. She has down syndrome. [facility]MERLY [facility] Medical History Down syndrome Surgical History History of open heart surgery Family History Mother Asthma Family/Other Substance use disorder Father Hypercholesteremia Diabetes CHF (congestive heart failure) Paternal Aunt CHF (congestive heart failure) Diabetes Fibromyalgia Social History Housing: Apartment Alcohol intake: never Patient Tobacco Use Status: Never used Tobacco e-Cigarette/Vaping Use: Never Used Second Hand Smoke Exposure: No service: No Current occupational status: student and disabled Cognitive needs: No Hearing needs: No Vision needs: Yes Female Reproductive History Menstrual Age of Menarche: 15 Duration of menses: other control method: implanted Total pregnancies: 0 Physical Exam Vital Signs: Last Vital Signs BP 116/68 05/30/24 13:26 BMI result Body Mass Index 42.8 Const Other: See procedures patient has it in left upper arm secondary to body habitus it feels very posterior when her arm is down but when she extends her arms upward which anatomically slightly shortened it feels more midposition in the arm. there is adipose tissue and stretch [place] Office Procedures Contraception Insert/Removal Details Details: Nexplanon Removal/Reinsertion Insertion Procedure The patient was placed in a supine position with her non dominant hand resting under her head. The insertion site was located: 8-10cm from the medial epicond yle notch of the humerus, posterior to the sulcus, between the triceps and biceps muscle. The area of the previous implant was identified and the distal tip located. This area was cleansed with an alcohol prep and 3 ml of 2% Lidocaine on a 25 gauge needle and syringe was utilized for adequate anesthesia to the insertion site. After ascertaining adequate anesthesia, the area was prepped with Betadine solution. The skin over the distal tip was incised with a #11 blade scalpel and the capsule was located and entered freeing the implant from the canal. The implant was removed with a gentle tug using a mosquito clamp and removed intact. The Nexplanon device was removed from the manufacturers package and the implant was noted in the trocar canal. The trocar was inserted at a 30 degree angle and then lowered parallel to the skin for insertion into the subcutaneous space with counter traction. Direct pressure was applied to the insertion site for hemostasis, minimal bleeding was observed. Steri strips, Tegaderm covering, gauze pads, and Doroteo wrap dressing were secured with paper tape. The implant was palpable underneath the skin by myself and the patient. The patient tolerated the procedure well and left the office in good condition. She tolerated it very well with the support of her mother Comfort she is going to go home and not do much I recommend the pressure dressing until she is home from her evening shift tonight. [address]9747 - Insertion and Removal Office Meds Nexplanon 68 mg subdermal implant Performing Provider: Rekha Loco CNM [facility] Administered by: Mylene Daniels CMA on 05/30/24 15:06 Dose Route Admin Location Dispensed Lot Number Expiration Date [facility] Bottle Capper 1 implant subdermal 1 ea [id number] 05/29/26 Assessment & Plan Assessment & Plan (1) Contraceptive management: Comment: Has Nexplanon inserted by car usher for 5 years ago for menstrual management which has been successful only negative side effect is the weight gain after full discussion decision made by patient and mother to proceed with replacement.; 05/30/2024 Nexplanon replaced with no problems, replaced in the exact same site as original insertion. Code(s): Z30.9 - Encounter for contraceptive management, unspecified Category: Medical (2) Morbid obesity with BMI of 40.0-44.9, adult: Comment: Discussed in context dietary likes and dislikes and how healthy foods can make us feel better, as well as discussed encouraging dancing and Clyde and other active movement. Discussed in context of the Nexplanon weight gain side effects which she is using to help with menstrual management, and this will be replaced in near future. Code(s): E66.01 - Morbid (severe) obesity due to excess calories; Z68.41 - Body mass index [BMI] 40.0-44.9, adult Category: Medical (3) Encounter for removal and reinsertion of Nexplanon: Code(s): Z30.46 - Encounter for surveillance of implantable subdermal contraceptive Category: Medical (4) Down syndrome: Code(s): Q90.9 - Down syndrome, unspecified Category: Medical Plan Reviewed procedure patient at her mom patient was afraid it was going to hurt she is semi verbal she communicates with her mother and vice versa. Supported by her mother throughout the procedure and she watched cartoons on her phone Site of previous insertion found it here to be more medial than current recommendations recommend however as good anesthesia was attain to site with a xylocaine and very superficial under her epidermis decision to place the new Nexplanon in the exact site as the previous 1. Nexplanon placed but no difficulty whatsoever patient mother is to call if there any problem at all with the Nexplanon and we will see her. Coding Level of Care Code Est Pt Level 3 (30632) Diagnoses Contraceptive management Z30.9 Morbid obesity with BMI of 40.0-44.9, adult E66.01; Z68.41 Encounter for removal and reinsertion of Nexplanon Z30.46 Down syndrome Q90.9 CPT Codes Details - Contraception: 38707 - Insertion and Removal ([id number])
== END 2024-05-30 15:15 | disposition home or self-care (01) ==
LOC: HO.HWSM 13:18
PROVIDERS: PCP Internal Medicine; Visit Provider Advanced Practice Midwife
DX: Z30.46 Encounter for surveillance of implantable subdermal contraceptive (principal)
CPT/HCPCS: 11983

== ENCOUNTER → 2024-05-30 13:18 | Outpatient (BNVA) | payer OTHER, SELFPAY | PROVIDERS: PCP Internal Medicine; Visit Provider Advanced Practice Midwife | DX: Z30.9 Encounter for contraceptive management, unspecified (principal); Z30.46 Encounter for surveillance of implantable subdermal contraceptive; Q90.9 Down syndrome, unspecified; E66.01 Morbid (severe) obesity due to excess calories; Z68.41 Body mass index [BMI] 40.0-44.9, adult | CPT/HCPCS: 11983; J7307 ==

== ENCOUNTER 2024-12-02 07:52 | Outpatient (AMB) | payer OTHER, SELFPAY ==
--- OUTSIDE RECORDS SUMMARY | 2024-12-02 07:57 | XMS_ITS | Clinical Summary ---
Author Organization [facility] Address [address] [place] [address] Care Team Providers Care Compound Specialist Name Role Phone Pcp, No Primary Care Provider Unavailabl e Social History Tobacco Use Types Packs/Day Years Used Date Smoking Tobacco: Never Assessed Comments Unknown Sex and Gender Information Value Date Recorded Sex Assigned at Not on file Legal Sex Female 5:01 PM EST Gender Identity Not on file Sexual Orientation Not on file Last Filed Vital Signs Vital Sign Reading Time Taken Comments Blood Pressure 115/76 07/15/2020 5:18 PM EST Pulse 65 07/15/2020 5:18 PM EST Temperature 35.9 ??C (96.6 ??F) 07/15/2020 5:18 PM ES T Respiratory Rate - - Oxygen Saturation 99% 07/15/2020 5:18 PM EST Inhaled Oxygen Concentration - - Weight 81.2 kg (179 lb) 07/15/2020 5:18 PM EST Height 149.9 cm (4' 11 ) 07/15/2020 5:18 PM EST Body Mass Index 36.15 07/15/2020 5:18 PM EST Plan of Treatment Health Maintenance Due Date Last Done Comments Hepatitis C Virus Screening 2001 HIV Screening 2014 HPV Vaccines (1 - 3-dose series) 2016 DTaP/Tdap/Td Vaccines (1 - Tdap) 2020 Hepatitis B Vaccines (1 of 3 - 19+ 3-dose series) 2020 Pap Smear (Ages 21-65) 2022 Influenza Vaccine 02/29/2024 08/26/2020 COVID-19 Vaccine (1 - 2023-2 5 season) 2024 Pneumococcal Vaccine: Pediat franklin (0-5 Years) and At-Risk Patients (6 to 49 Years) Aged Out No longer eligible b ased on patient's age to complete this topic Insurance [facility] Care Teams Compound Specialist Relationship Specialty Start Date End Date Pcp, No PCP - General General Medicine 07/15/20
[2024-12-02 08:19] VITALS: BP 112/70; BMI 42.4
--- NOTE | 2024-12-02 08:19 | MHC.PC.OV ---
Vital Signs 12/02/24 08:19 Height 4 ft 8 in Weight 189 lb BMI 42.4 BP 112/70 Blood Pressure Location Lt brachial Position Sitting Intake Visit Reasons: annual exam Intake Note: Patient here for a physical exam Absorber Operator Required: No Accompanied by: Mother Allergies azithromycin Allergy (Severe, Verified 12/02/24 08:51) hives ranitidine [From ZANTAC] Allergy (Intermediate, Verified 12/02/24 08:51) HIVES SEASONAL ALLERGIES Allergy (Intermediate, Uncoded 12/02/24 08:51) HIVES Medication List - Last Reconciled 12/02/24 by Kimmie Perla MD acetaminophen 500 mg PO Q6H PRN cetirizine 10 mg PO DAILY 90 days etonogestrel (Nexplanon) subdermal ibuprofen 600 mg PO Q8H PRN 30 days trazodone 50 mg PO BEDTIME PRN 30 days Tobacco use date assessed: 12/02/24 Dental Screening Dental Screen Date: 12/02/24 Did you have a dental visit in the last 12 months?: Yes Did you have a dental problem in the last 6 months where you did not have access to dental care?: No Was dental information given to patient?: Patient has dentist HPI HPI Comments History of Present Illness Details The patient is a 23-year-old female presenting with an annual physical examination. She reports no significant changes in her health status since her last visit. Her past medical history includes morbid obesity and Down syndrome. She underwent corrective surgery for a patent foramen ovale. Her chronic conditions comprise type 2 diabetes mellitus and hypercholesterolemia, for which she takes several medications. 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 She denies any new symptoms or concerning changes and is focused on maintaining her current health status. Notably, she experiences frequent breakouts of pimples, though no additional specifics regarding this concern were explored. The conversation noted her challenge in managing prescription orders. - Participation in work opportunity program in [place] - Tdap vaccine to be done today. - Use of Nexplanon for irregular menses [facility] Medical History (Updated 12/02/24 @ 08:59 by Kimmie Perla MD) Down syndrome Surgical History History of open heart surgery Family History Mother Asthma Family/Other Substance use disorder Father Hypercholesteremia Diabetes CHF (congestive heart failure) Paternal Aunt CHF (congestive heart failure) Diabetes Fibromyalgia Social History Housing: Apartment Alcohol intake: never Patient Tobacco Use Status: Never used Tobacco e-Cigarette/Vaping Use: Never Used Second Hand Smoke Exposure: No service: No Current occupational status: student and disabled Cognitive needs: No Hearing needs: No Vision needs: Yes Female Reproductive History Menstrual Age of Menarche: 15 Questionnaire PHQ-9 Over the last 2 weeks, how often have you been bothered by any of the following problems? 1. Little interest or pleasure in doing things: not at all 2. Feeling down, depressed, or hopeless: not at all 3. Trouble falling or staying asleep, or sleeping too much: not at all 4. Feeling tired or having little energy: not at all 5. Poor appetite or overeating: not at all 6. Feeling bad about yourself - or that you are a failure or have let yourself or your family down: not at all 7. Trouble concentrating on things, such as reading the newspaper or watching television: not at all 8. Moving or speaking so slowly that other people could have noticed. Or the opposite - being so fidgety or restless that you have been moving around a lot more than usual: not at all 9. Thoughts that you would be better off or of hurting yourself in some way: not at all Total score: 0 Depression Screening Interpretation: Negative Depression Screening Done: Yes 93424 - PHQ-9 Billing: Yes Source: Developed by Drs. Dave Guillaume, Daily Pena, Conrad Damon and colleagues, with an educational lashawn from [employer]. Thrive Questionnaire Date Thrive assessed: 12/02/24 I am a: Patient What is your living situation today?: I have a steady place to live Within the past 12 months, did the food you bought not last and you didn't have the money to get more?: Never true Within the past 12 months, did you worry whether your food would run out before you got money to buy more?: Never true Do you have trouble paying for medicines?: No Do you have trouble getting transportation to medical appointments?: No Do you have trouble paying your heating and electricity bill?: No Do you have trouble taking care of your child, family member or friend?: No Do you have trouble with day-to-day activities such as bathing, preparing meals, shopping, managing finances, etc.?: Yes Are you currently unemployed and looking for a job?: Yes Are you interested in more education?: No Please select the resources that you would like help with: None Currently or been in a relationship where the following occur: No concerns reported THRIVE Score: 0 AUDIT C Alcohol Use Questionnaire (AUDIT-C) 1. How often do you have a drink containing alcohol?: Never Total Score: 0 Score Reviewed/Action Taken: No FCO-7 AMB Questionnaire FCO-7 Date FCO - 7 assessed: 12/02/24 Feeling nervous, anxious, or on edge: 0 = Not at all Not being able to stop or control worryin = Not at all Worrying too much about different things: 0 = Not at all Trouble relaxin = Not at all Being so restless that it is hard to sit still: 0 = Not at all Becoming easily annoyed or irritable: 0 = Not at all Feeling afraid as if something awful might happen: 0 = Not at all Total FCO-7 score (0-4 normal; 5-9 mild; 10-14 moderate; 15-21 severe): 0 Source: Developed by Drs. Dave Guillaume, Daily Pena, Conrad Damon and colleagues, with an educational lashawn from [employer]. FCO-7 Assessment Billing FCO-7 Assessment Tool: FCO-7 Assessment 23507 Review of Systems Const All systems reviewed & are unremarkable except as noted in HPI and below Card Denies chest pain at rest, Denies chest pain with activity, Denies edema, Denies irregular heart rhythm, Denies claudication, Denies dyspnea, Denies dyspnea on exertion, Denies orthopnea, Denies paroxysmal nocturnal dyspnea and Denies slow heart rate Resp Denies cough, Denies dyspnea and Denies dyspnea on exertion GI Denies abdominal pain, Denies change in bowel habits, Denies excessive flatus, Denies nausea and Denies vomiting Physical exam (Primary Care) Vital Signs: Last Vital Signs BP 112/70 12/02/24 08:19 BMI result Body Mass Index 42.4 BMI Assessment/Plan discussion: High BMI High, discussed plan: lifestyle, weight reduction, dietary and physical activity Tobacco/Smoking Status: Tobacco use Status Tobacco use date assessed 12/02/24 12/02/24 08:26 Patient Tobacco Use Status Never used Tobacco 12/02/24 08:19 e-Cigarette/Vaping Use Never Used 12/02/24 08:19 PHQ-9: PHQ-9 Score PHQ-9: Total score 0 12/02/24 08:55 Depression Screening Interpretation: Negative Thrive Assessment: Date of Thrive Assessment Date Thrive assessed 12/02/24 12/02/24 08:26 Currently or been in a relationship where the following occur: No concerns reported HENMT Head: Yes normal to inspection, Yes normocephalic and Yes atraumatic Ears: external ears normal Neck Neck: Yes normal visual inspection and Yes supple Resp Effort & Inspection: normal respiratory effort Auscultation: clear to auscultation bilaterally Cardio Jugular venous distension: no JVD Rate: regular rate Rhythm: regular rhythm Heart sounds: S1 normal heart sound present and S2 normal heart sound present GI Inspection: Yes normal to inspection Palpation (GI): Soft to palpation and nontender Auscultation: normal bowel sounds Skin General skin exam: no rashes or lesions noted Neuro General: no focal motor deficits Extrem General: Yes full ROM Psych Appearance: grossly normal Immunizations Boostrix Tdap 2.5 Lf unit-8 mcg-5 Lf/0.5 mL intramuscular syringe Performing Provider: Kimmie Perla MD [facility] [place] [facility] Administered by: KADIE Deleon on 12/02/24 09:02 Dose Route Admin Location Dispensed Lot Number Expiration Date [facility] Heat And Frost Insulator 0.5 mL IM Left Deltoid 0.5 mL [id number] 03/25/27 [id number] [employer] VIS Given Date VIS Provided VIS Publication Date 12/02/24 Single Vaccine 24 Eligibility Eligibility Date Funding Source Not [facility] Eligible 12/02/24 Private Coding Level of Care Code Est Pt Level 3 (21231) Est Pt Prev Care 18-39y(77167) Diagnoses Physical exam Z00.00 Morbid obesity with BMI of 40.0-44.9, adult E66.01; Z68.41 Acne L70.9 Additional Codes PHQ-9 - 14854 - PHQ-9 Billing: Yes ([id number]) FCO-7 Assessment Billing - FCO-7 Assessment Tool: FCO-7 Assessment 35139 ([id number]) Time Spent (min) 33 Assessment & Plan Assessment & Plan (1) Physical exam: Code(s): Z00.00 - Encounter for general adult medical examination without abnormal findings Category: Medical (2) Morbid obesity with BMI of 40.0-44.9, adult: Comment: Discussed in context dietary likes and dislikes and how healthy foods can make us feel better, as well as discussed encouraging dancing and Clyde and other active movement. Discussed in context of the Nexplanon weight gain side effects which she is using to help with menstrual management, and this will be replaced in near future. Code(s): E66.01 - Morbid (severe) obesity due to excess calories; Z68.41 - Body mass index [BMI] 40.0-44.9, adult Category: Medical (3) Acne: Code(s): L70.9 - Acne, unspecified Category: Medical Plan During the visit, I reviewed management strategies for her chronic conditions, confirming the continuation of her current medications. I proposed maintaining regular monitoring for diabetes and hypercholesterolemia. Recurrent pimples were noted, though specific treatment plans were not discussed. Prescription management support will be prioritized. Emphasis was placed on weight management discussions for future visits. The patient's engagement in her vocational program was encouraged, reinforcing her health maintenance practices. Continuing her lifestyle choices free from smoking and alcohol remains important. Follow-up strategies will be based on further assessment and management needs. Patient was informed and verbally consented to the use of an ambient scribe for clinic note documentation during this visit. I discussed with the patient the ongoing management of her conditions, emphasizing the importance of controlling her diabetes and cholesterol levels with current medications. I explained the necessity of supporting her prescription needs and explored options for facilitating medication access. The discussion highlighted her recurrent dermatological issues, with further dermatological assessment suggested. I highlighted the benefits of lifestyle modifications, including participation in her vocational program and avoiding tobacco and alcohol. There are no new immediate risks identified, and we maintain open lines for further inquiries into her prescriptions and ongoing care. Revisiting weight management strategies is anticipated in future visits. Orders: Orders Vitamin D 25-OH Total Today E55.9 - Vitamin D deficiency, unspecified Lipid Panel Today Z00.00 - Encounter for general adult medical examination without abnormal findings Thyroid Stimulating Hormone Today E66.01 - Morbid (severe) obesity due to excess calories, Z68.41 - Body mass index [BMI] 40.0-44.9, adult Comprehensive [place]. Panel Fast Today Z00.00 - Encounter for general adult medical examination without abnormal findings Complete Blood Count Auto Diff Today E66.01 - Morbid (severe) obesity due to excess calories, Z68.41 - Body mass index [BMI] 40.0-44.9, adult Referrals Dermatology Referral L70.9 - Acne, unspecified Medications: New tirzepatide (weight loss) (Zepbound) for 4 weeks 2.5 mg (0.5 mL) subcut QWEEK 4 weeks 2 mL 0RF E66.01 - Morbid (severe) obesity due to excess calories, Z68.41 - Body mass index [BMI] 40.0-44.9, adult Patient Instructions: - Continue all current medications as prescribed. - Monitor for any new or worsening symptoms. - Notify about any issues with obtaining or managing prescriptions. - Maintain engagement with work opportunity program. - Continue avoiding smoking and alcohol. - Follow up as advised in future visits.
== END 2024-12-02 09:03 | disposition home or self-care (01) ==
LOC: HO.HMCH 07:53
PROVIDERS: PCP Internal Medicine; Visit Provider Internal Medicine
DX: Z00.00 Encounter for general adult medical examination without abnormal findings (principal); L70.9 Acne, unspecified; E66.01 Morbid (severe) obesity due to excess calories; Z68.41 Body mass index [BMI] 40.0-44.9, adult; Z23 Encounter for immunization

== ENCOUNTER 2024-12-02 07:52 | Outpatient (REF) | payer OTHER, SELFPAY ==
[2024-12-02 09:40] LABS: MANUAL DIFF FLAG NO
--- OUTSIDE RECORDS SUMMARY | 2024-12-02 09:51 | XMS_ITS | Encounter Summary ---
Author Organization [facility] Address [address] [place] [address] Care Team Providers Care Judicial Clerk Name Role Phone Surendra Tipton MD Primary Care Provider Gerber Kilgore, Pcp Primary Care Provider Unavailabl e Reason for Visit * Reason Onset Date Comments Form 04/09/2020 Encounter Details Date Type Department Care Team Description 04/09/2020 Telephone Pediatrics - [address] [address] Surendra Tipton MD Form Social History Tobacco Use Types Packs/Day Years Used Date Smoking Tobacco: Never Smokeless Tobacco: Never Alcohol Use Standard Drinks/Week Comments Not Asked 0 (1 standard drink = 0.6 oz pur e alcohol) Sex Assigned at Date Recorded Not on file documented as of this encounter Miscellaneous Notes * Telephone Encounter - Hailee Holloway - 04/09/2020 2:24 PM EDT Pediatric Form Request Type of form: [facility] Date of last physical: 01/2020 Does patient want: Mail to another office/MD at: Adela Buitrago Placed in Folder documented in this encounter Plan of Treatment Not on file documented as of this encounter Visit Diagnoses Not on filedocumented in this encounter Care Teams Judicial Clerk Relationship Specialty Start Date End Date Surendra Tipton MD PCP - General Pediatrics 04/27/16 04/20/22 Community, Pcp PCP - General Internal Medicine 04/21/22 documented as of this encounter
--- OUTSIDE RECORDS SUMMARY | 2024-12-02 09:51 | XMS_ITS | Encounter Summary ---
Author Organization [facility] Address [address] [place] [address] Care Team Providers Care Management Trainee Name Role Phone Surendra Tipton MD Primary Care Provider Gerber Kilgore, Pcp Primary Care Provider Unavailvani e Encounter Details Date Type Department Care Team Description 12/28/2017 Electronic Equipment Repairer Report Medical Records [address] History Tobacco Use Types Packs/Day Years Used Date Smoking Tobacco: Never Alcohol Use Standard Drinks/Week Comments Not Asked 0 (1 standard drink = 0.6 oz pur e alcohol) Sex Assigned at Date Recorded Not on file documented as of this encounter Plan of Treatment Not on file documented as of this encounter Visit Diagnoses Not on filedocumented in this encounter Care Teams Management Trainee Relationship Specialty Start Date End Date Surendra Tipton MD PCP - General Pediatrics 04/27/16 04/20/22 Jame, Pcp PCP - General Internal Medicine 04/21/22 documented as of this encounter
--- OUTSIDE RECORDS SUMMARY | 2024-12-02 09:52 | XMS_ITS | Encounter Summary ---
Author Organization [facility] Address [address] [place] [address] Care Team Providers Care Instruction Dean Name Role Phone Surendra Tipton MD Primary Care Provider Gerber Kilgore, Pcp Primary Care Provider Terrance rey Encounter Details Date Type Department Care Team Description 05/06/2016 Hand Therapist Report Medical Records [address] [place] [address] Magda Rod Social History Tobacco Use Types Packs/Day Years Used Date Smoking Tobacco: Never Alcohol Use Standard Drinks/Week Comments Not Asked 0 (1 standard drink = 0.6 oz pur e alcohol) Sex Assigned at Date Recorded Not on file documented as of this encounter Plan of Treatment Not on file documented as of this encounter Visit Diagnoses Not on filedocumented in this encounter Care Teams Instruction Dean Relationship Specialty Start Date End Date Surendra Tipton MD PCP - General Pediatrics 04/27/16 04/20/22 Jame, Pcp PCP - General Internal Medicine 04/21/22 documented as of this encounter
--- OUTSIDE RECORDS SUMMARY | 2024-12-02 09:52 | XMS_ITS | Encounter Summary ---
Author Organization [facility] Address [address] [place] [address] Care Team Providers Care Shirt Marker Name Role Phone Surendra Tipton MD Primary Care Provider Gerber Kilgore, Pcp Primary Care Provider Terrance rey Encounter Details Date Type Department Care Team Description 03/09/2021 Stage Builder Report Medical Records [address] [place] [address] [address] Social History Tobacco Use Types Packs/Day Years Used Date Smoking Tobacco: Never Smokeless Tobacco: Never Alcohol Use Standard Drinks/Week Comments Not Asked 0 (1 standard drink = 0.6 oz pur e alcohol) Sex Assigned at Date Recorded Not on file COVID-19 Exposure Response Date Recorded In the last month, have you been in contact with someone who was confirmed or suspected to have Coronavirus / COVID-19? No / Unsure 03/11/2021 1:57 PM EDT documented as of this encounter Plan of Treatment Not on file documented as of this encounter Visit Diagnoses Not on filedocumented in this encounter Care Teams Shirt Marker Relationship Specialty Start Date End Date Surendra Tipton MD PCP - General Pediatrics 04/27/16 04/20/22 Jame, Pcp PCP - General Internal Medicine 04/21/22 documented as of this encounter
--- OUTSIDE RECORDS SUMMARY | 2024-12-02 09:52 | XMS_ITS | Clinical Summary ---
Author Organization [facility] Address [address] [place] [address] Care Team Providers Care Sterile Processing Technician Name Role Phone Pcp, No Primary Care [...] patient's age to complete this topic Insurance [facility] Care Teams Sterile Processing Technician Relationship Specialty Start Date End Date Pcp, No PCP - General General Medicine 07/15/20
--- OUTSIDE RECORDS SUMMARY | 2024-12-02 09:52 | XMS_ITS | Encounter Summary ---
Author Organization [facility] Address [address] [place] [address] Care Team Providers Care Induction Furnace Operator Name Role Phone Surendra Tipton MD Primary Care Provider Gerber Kilgore, Pcp Primary Care Provider Unavailabl e Encounter Details Date Type Department Care Team Description 03/03/2020 Release of Information Medical Records [address] [place] [id number] Abstract, Provider Social History Tobacco Use Types Packs/Day Years [...] on filedocumented in this encounter Care Teams Induction Furnace Operator Relationship Specialty Start Date End Date Surendra Tipton MD PCP - General Pediatrics 04/27/16 04/20/22 Jame, Pcp PCP - General Internal Medicine 04/21/22 documented as of this encounter
--- OUTSIDE RECORDS SUMMARY | 2024-12-02 09:52 | XMS_ITS | Encounter Summary ---
Author Organization [facility] Address [address] [place] [address] Care Team Providers Care Bench Boring Machine Operator Name Role Phone Surendra Tipton MD Primary Care Provider Gerber Kilgore, Pcp Primary Care Provider Unavailvani e Encounter Details Date Type Department Care Team Description 05/03/2021 Rug Drying Machine Operator Report Medical Records [address] [place] [address] John Justice Social History Tobacco Use Types Packs/Day Years [...] on filedocumented in this encounter Care Teams Bench Boring Machine Operator Relationship Specialty Start Date End Date Surendra Tipton MD PCP - General Pediatrics 04/27/16 04/20/22 Jame, Pcp PCP - General Internal Medicine 04/21/22 documented as of this encounter
--- OUTSIDE RECORDS SUMMARY | 2024-12-02 09:52 | XMS_ITS | Encounter Summary ---
Author Organization [facility] Address [address] [place] [address] Care Team Providers Care Health And Safety Instructor Name Role Phone Surendra Tipton MD Primary Care Provider Gerber Kilgore, Pcp Primary Care Provider Terrance e Encounter Details Date Type Department Care Team Description 06/06/2019 Jeep Mechanic Report Medical Records [address] [place] [address] Magda Rod Social History Tobacco Use Types [...] on filedocumented in this encounter Care Teams Health And Safety Instructor Relationship Specialty Start Date End Date Surendra Tipton MD PCP - General Pediatrics 04/27/16 04/20/22 Jame, Pcp PCP - General Internal Medicine 04/21/22 documented as of this encounter
--- OUTSIDE RECORDS SUMMARY | 2024-12-02 09:52 | XMS_ITS | Encounter Summary ---
Author Organization [facility] Address [address] [place] [address] Care Team Providers Care Furnace Charger Name Role Phone Surendra Tipton MD Primary Care Provider Gerber Kilgore, Pcp Primary Care Provider Unavailabl e Encounter Details Date Type Department Care Team Description 01/28/2021 [facility] Medical Records [address] [place] [address] Abstract, Provider Social History Tobacco Use Types [...] on filedocumented in this encounter Care Teams Furnace Charger Relationship Specialty Start Date End Date Surendra Tipton MD PCP - General Pediatrics 04/27/16 04/20/22 Jame, Pcp PCP - General Internal Medicine 04/21/22 documented as of this encounter
[2024-12-02 10:30] LABS: Basophils Absolute Auto 0.1 X10*3/uL (0.0-0.2); Basophils Percent Auto 0.7 % (0-2); Hematocrit 46.1 % (37.0-47.0); Imm Gran Abs Auto 0.04 X10*3/uL (0.00-0.03); Imm Gran Pct Auto 0.6 % (0.0-0.4); Lymphocytes Absolute Auto 1.5 X10*3/uL (1.2-4.9); Lymphocytes Percent Auto 20.6 % (20-40); Mean Corpuscular HGB Conc 34.7 g/dl (31.0-35.0); Mean Corpuscular Hemoglobin 31.1 pg (27.0-33.0); Mean Corpuscular Volume 89.7 fL (80.0-98.0); Mean Platelet Volume 9.6 fL (9.4-12.3); Monocytes Absolute Auto 0.5 X10*3/uL (0.1-1.2); Monocytes Percent Auto 7.5 % (2-11); Neutrophils Percent Auto 70.6 % (45-73); Platelet Count 320 X10*3/uL (160-400); Red Blood Count 5.14 X10*6/uL (4.20-5.50); Red Cell Distribution Width 13.7 % (11.0-16.0)
[2024-12-02 11:26] LABS: Alanine Aminotransferase 35 U/L (0-31); Albumin Level 4.2 g/dL (3.5-5.0); Alkaline Phosphatase 99 U/L (39-117); Anion Gap 11 (12-20); Aspartate Amino Transferase 21 U/L (5-31); Bilirubin Total 0.6 mg/dL (0.0-1.0); Blood Urea Nitrogen 13 mg/dL (9-16); Calcium 9.6 mg/dL (8.4-10.2); Carbon Dioxide 25 mmol/L (22-29); Chloride 107 mmol/L (96-108); Cholesterol 181 mg/dL (<200); Estimated Glomerular Filt Rate > 60; Glucose Fasting 105 mg/dL (60-99); HDL Cholesterol 38 mg/dL (>40); LDL Cholesterol Calculated 132 mg/dL (<100); Potassium 4.2 mmol/L (3.3-5.1); Sodium 139 mmol/L (135-145); Thyroid Stimulating Hormone 3.03 uIU/mL (0.32-4.0); Triglycerides 55 mg/dL (<150); Vitamin D 25-OH Total 10.6 ng/mL (>30)
== END 2024-12-02 07:53 | disposition home or self-care (01) ==
LOC: HO.LAB 07:52
PROVIDERS: PCP Internal Medicine; Visit Provider Internal Medicine
DX: Z00.00 Encounter for general adult medical examination without abnormal findings (principal); Z23 Encounter for immunization; E66.01 Morbid (severe) obesity due to excess calories; Z68.41 Body mass index [BMI] 40.0-44.9, adult; L70.9 Acne, unspecified; E55.9 Vitamin D deficiency, unspecified
CPT/HCPCS: 36415; 80053; 80061; 82306; 84443; 85025; 90471; 90715; 96127; 99212; 99395